=== PATIENT | female | born 1970 | race Caucasian/White ===

== ENCOUNTER 2018-08-19 05:30 | Day surgery (SDC) | payer OTHER ==
--- NOTE | 2018-08-13 16:49 | NUR ---
PATIENT HERE TODAY FOR PREADMISSION APPOINTMENT. SHE IS SCHEDULED TO HAVE A RIGHT TOTAL KNEE REPLACMENT ON 08/19/18. HER JULIO WILL BE HERE TO TRANSPORT HER HOME WHEN DISCHARGED AND SHE HAS HELP TO GET TO PHYSICAL THERAPY AND APPOINTMENTS. SHE HAS ALREADY COMPLETED THE JOINT BOOT CAMP AND WOULD LIKE PHYSICAL THERAPY TO BE SET UP AT THE [facility] PHYSICAL THERAPY. SHE HAS 1 STEP INTO THE HOME AND NO STEPS INSIDE THE HOME. SHE HAS A WALKIN SHOWER WITH HAND HELD SHOWER HEAD. SHE HAS ALSO ALREADY OBTAINED A FRONT WHEELED WALKER AND SHOWER CHAIR. THIS INFORMATION WILL BE SENT TO DR DAUGHERTY AND CASE MANAGEMENT FOR FURTHER FOLLOW UP.
[~2018-08-19] VITALS: Ht 165.1 cm; Wt 130.2 kg
[~2018-08-19 05:30] MED LIST: ANAFRANIL25 MG; BENICAR20 MG PO; DICLOFENAC SODI50 MG PO; FELODIPINE ER10 MG; IRBESARTAN300 MG PO; LEVOTHROID125 MCG; LEVOTHYROXINE200 MCG PO; METOPROLOL SUCC50 MG PO; NORCO 5-325 TA1 EACH PO; OMEPRAZOLE20 MG PO; PREMARIN0.625 MG; PROVENTIL HFA6.7 GM
--- NOTE | 2018-08-19 09:42 | NUR ---
PT IS ALERT, ORIENTED AND SUPPORTED BY HER FAMILY. SHE SEEMS PREPARED, INFORMED AND READY FOR RELIEF. PT HAD FEW QUESTIONS, IS TO BE DC'D TODAY. PT DID REQUEST PRAYER, WILL FOLLOW NEEDED
--- NOTE | 2018-08-19 10:26 | NUR ---
08/19/18 1026 Arabella Miranda 0939 PT ARRIVED IN PACU AWAKE WITH NO C/O'S. JULIAN WOUND VAC IN PLACE AND ON-QUE PUMP ON AND SET AT 8 IN OR. 0945 CRYO CUFF PLACED TO R KNEE. NO C/O'S. 0951 OXYGEN REMOVED. SATS 96% ON RA. 1000 PT WILL OCCASIONALLY HOLD BREATH AND SATS DROP TO 88% ON RA. ENCOURAGED DEEP BREATHING. O2 AT 2L VIA NC PLACED AND SATS INCREASED TO 100%. 1020 PT ABLE TO WIGGLE TOES AT THIS TIME.
--- NOTE | 2018-08-19 10:46 | NUR ---
PT ARRIVE TO DS TREATMENT ROOM FROM PACU AWAKE AND ALERT. PT SITTING IN HIGH FOWLERS POSITION, RESP EVEN AND UNLABORED. PT HAS NC IN PLACE WITH 2L O2. PT DENIES ANY PAIN OR NAUSEA. PT PROVIDED WATER AND PUDDING, TOLERATES SMALL SIPS WELL. CALL LIGHT WITHIN REACH, FAMILY AT BEDSIDE.
--- NOTE | 2018-08-19 12:08 | NUR ---
PU5051: PT CONT TO REST IN BED. PT SATS 94% ON RA. PT CONT TO DENY PAIN IN RIGHT KNEE AND DENIES N/V. BILAT HEEL PROTECTORS PLACED. PT PROVIDED I.S. AND EDUCATED ON HOW TO USE IT. PT DEMONSTRATES USE. 1130: PT CONT TO SAT 94% ON RA WITH EVEN AND UNLABORED RESP. PT ABLE TO MOVE BOTH LEGS AND DENIES ANY TIGLING OR NUMBNESS IN RIGHT LEG. PT RATES PAIN 3/10 AT THIS TIME AND DENIES NAUSEA. PT TOLERATES PUDDING WELL. ICED WATER REFILLED. 1200: PHARMACY NOTIFIED OF MEDS DUE, WILL BRING TO DS WHEN THEY ARE AVAILABLE. DIETARY CALLED AND LUNCH ORDERED FOR PT.
--- NOTE | 2018-08-19 12:39 | NUR ---
PT TOLERATES LUNCH WELL, REQUESTS SODA TO DRINK. PT FAMILY AT BEDSIDE. PT MEDICATED FOR PAIN, SEE EMAR. PT ABLE TO WIGGLE TOES ON RIGHT LEG AND HAS GOOD CMS.
--- NOTE | 2018-08-19 13:24 | NUR ---
PATIENT RINGS HER CALL LIGHT AND ASKS FOR MORE FOOD. YOGURT AND GRANOLA ORDERED FROM DIETARY.
--- NOTE | 2018-08-19 13:53 | NUR ---
TWO RN'S ASSIST PT UP TO BEDSIDE COMMODE. PT TRANSFERS WELL AND IS ABLE VOID WITH NO PROBLEMS. PT BACK IN BED, EATING YOGURT. PT RATES PAIN 1/10 AND DENIES ANY NAUSEA. PT STATES, "CAN PHYSICAL THERAPY COME ANY SOONER, I WOULD LIKE TO GO HOME." THIS RN NOTIFIES PHYSICAL THERAPY OF PT REQUESTS.
--- NOTE | 2018-08-19 15:14 | NUR ---
1415: PHYSICAL THERAPY ARRIVES TO DS TREATMENT ROOM FOR THERAPY. PT TAKEN TO MED SURG FLOOR. 1500: PT BACK FROM PHYSICAL THERAPY. PT ASKS IF SHE CAN GET DRESSED AND DISCHARGE. PT DOES NOT HAVE ORDERS ON CHART AT THIS TIME FOR HOME PAIN MANAGEMENT. PT RESTS IN BED WITH SCD'S IN PLACE AND CRYO CUFF ON RIGHT KNEE. PT SPOUSE AT BEDSIDE. PT PROVIDED SODA PER REQUEST. CALL LIGHT WITHIN REACH.
--- NOTE | 2018-08-19 16:12 | NUR ---
PT CONT TO REST IN BED, WATCHING TV. RESP EVEN AND UNLABORED. PT RATES PAIN IN RIGHT KNEE 02/22. PT DENIES NAUSEA AT THIS TIME AND REQUESTS GRILLED CHEESE WITH CHIPS, DIETARY NOTIFIED. CRYOCUFF REFILLED WITH ICE. CALL LIGHT WITHIN REACH.
--- NOTE | 2018-08-19 16:26 | NUR ---
DINNER ARRIVES TO PT ROOM. PT MEDICATED FOR PAIN, SEE EMAR.
[2018-08-19] MEDS ORDERED: OXYCODONE HCL5 MG PO (17:09)
[2018-08-19] MEDS ORDERED: CELECOXIB200 MG PO (17:09)
[2018-08-19] MEDS ORDERED: GABAPENTIN600 MG PO (17:09)
[2018-08-19] MEDS ORDERED: HEALTHYLAX17 GM PO (17:10)
[2018-08-19] MEDS ORDERED: SENNA LAX8.6 MG PO (17:10)
[2018-08-19] MEDS ORDERED: ASPIRIN EC325 MG PO (17:12)
--- NOTE | 2018-08-19 17:36 | NUR ---
DC CRITERIA MET AT THIS TIME. DR. DAUGHERTY INPUTS DISCHARGE ORDERS. PT ASSISTED IN GETTING DRESSED. DC INSTRUCTIONS GIVEN TO PT, ALL QUESTIONS ANSWERED. PAIN MEDICATION SCRIPT GIVEN TO PT WITH DC INSTRUCTIONS. PT SPOUSE PULLS VEHICLE TO MAIN ENTRANCE OF HOSPITAL. PT DC'S VIA WC FROM DS TREATMENT ROOM TO HOME.
--- NOTE | 2018-08-19 18:09 | OR ---
[facility] [address] [place], [place] [address] Signed DATE OF OPERATION: 08/19/2018 SURGEON: Kiya Mc MD PREOPERATIVE DIAGNOSIS: Degenerative joint disease, right knee. POSTOPERATIVE DIAGNOSIS: Degenerative joint disease, right knee. PROCEDURE PERFORMED: Right total knee arthroplasty with computer navigation. CENTRAL CONTROL ROOM OPERATOR: KATIE Crespo. Karen was present in critical positioning, retraction, and wound closure. ANESTHESIA: Spinal. BLOOD LOSS: 150 mL. TOURNIQUET TIME: Zero. IMPLANTS: Kaleigh Triathlon size #5 femur, size 5 tibia, 11 mm insert, and 32 patella. BRIEF HISTORY: Ana Laura is a 48-year-old female with progressive worsening of osteoarthritis. She had life altering pain, had failed nonoperative treatment including injections, activity modification, anti-inflammatories. Risks and benefits of operative intervention were discussed with her and she elected to proceed. DESCRIPTION OF PROCEDURE: Once consent was obtained, she was taken to the operating room, placed on operating room table. All downside pressure points well padded. The right leg was placed in well-padded proximal thigh tourniquet and prepped and draped in a standard sterile fashion. The incision was made anteriorly and carried through skin and subcutaneous Electronically Signed By: KIYA MC MD 08/19/18 1809 PATIENT NAME: ANA LAURA DAY OPERATIVE REPORT DATE OF : 70 REPORT #: [id number] PHYSICIAN: KIYA MC MD PCP: JEREMIAS ANSARI MD REPORT IS CONFIDENTIAL AND NOT TO BE RELEASED WITHOUT AUTHORIZATION [facility] [address], [place] [address] Signed tissue. Median parapatellar arthrotomy was performed. The infrapatellar fat pad was excised and the MCL was elevated as minimally as possible around the posteromedial corner. The menisci were removed. The knee was flexed and the ACL was transected. The navigation guide was pinned to the distal femur and the femur was registered with the computer. The cutting block was then pinned in neutral alignment and the location of distal cut was made. The distal femur was then sized to a 5 and the 5 AP cutting block was pinned in line with epicondylar axis. The anterior, posterior, and chamfer cuts were made and osteophytes removed. The bone surfaces were pulse lavaged as we went. The attention was then turned to the proximal tibia. The navigation guide was pinned to the proximal tibia and the tibia was registered with the computer. The cutting guide was then pinned in neutral alignment and set with 2 degrees of posterior slope. The cut was made with care taken to protect the patellar tendon and MCL. Bone was excised as were any meniscal remnants. Minimal posterior release was performed due to her slight hyperextension postoperatively. There were no osteophytes posteriorly. The flexion and extension gaps were sized and found to be symmetric at 11. The trials were then positioned. Knee was taken through range of motion and found to be quite stable in good alignment. The patella was cut sized and drilled for a 32 patella. The distal femur was drilled and the proximal tibia was finished using the keel punch. The bone surfaces were pulse lavaged and packed with dry Ray-Luzmaria. The cement was mixed. When it reached proper consistency, it was placed on bone surfaces and implants. Tibia was impacted into position first followed by the polyethylene. The femur was impacted in position first, then the knee was extended nicely loaded. All remaining cement overflow was removed. The patella was clamped into position. Again, any overflow was removed. Cement was allowed to harden. Once it was hardened sufficiently, the knee was flexed and the remaining overflow was removed using osteotomes. Periarticular soft tissues were injected with 100 mL of ropivacaine, Toradol epi mix. The On-Q pump was then placed through a separate subcu portal superiorly, brought into the suprapatellar pouch and placed into the adductor canal under direct visualization. This was done bluntly with a pituitary rongeur. This was then dosed and the knee was run, it was pulse lavaged for a final time. A total of 3 L of antibiotic irrigation was used. The arthrotomy was closed using #2 Stratafix, #0 Stratafix for the subcutaneous tissue, and Dermabond mesh for the skin. The knee was dressed with a vacuum dressing and Shiva wrap. She was awakened and taken to recovery room in satisfactory condition. All sponge, needle, and instrument counts correct. Kiya Mc MD BA/MODL Electronically Signed By: KIYA MC MD 08/19/18 1809 PATIENT NAME: ANA LAURA DAY OPERATIVE REPORT DATE OF : 70 REPORT #: [id number] PHYSICIAN: KIYA MC MD PCP: JEREMIAS ANSARI MD REPORT IS CONFIDENTIAL AND NOT TO BE RELEASED WITHOUT AUTHORIZATION [address] [address] Signed /[id number] Copies: ~ Electronically Signed By: KIYA MC MD 08/19/18 1809 PATIENT NAME: ANA LAURA DAY OPERATIVE REPORT DATE OF : 70 REPORT #: [id number] PHYSICIAN: KIYA MC MD PCP: JEREMIAS ANSARI MD REPORT IS CONFIDENTIAL AND NOT TO BE RELEASED WITHOUT AUTHORIZATION
== END 2018-08-19 17:35 | disposition home or self-care (01) ==
LOC: DSVR 05:30 → DS 05:30 → MS 05:30 → EDSTATUS 11:00 → MS 11:00 → DS 17:35
PROVIDERS: Specialist
PROC: 8E0YXBZ Computer Assisted Procedure of Lower Extremity (ICD-10-PCS; 2018-08-19)
PROC: 0SRC0J9 Replacement of Right Knee Joint with Synthetic Substitute, Cemented, Open Approach (ICD-10-PCS; principal; 2018-08-19 06:45)
DX: M17.11 Unilateral primary osteoarthritis, right knee (principal); J45.909 Unspecified asthma, uncomplicated; K21.9 Gastro-esophageal reflux disease without esophagitis; E66.01 Morbid (severe) obesity due to excess calories; E03.9 Hypothyroidism, unspecified; I10 Essential (primary) hypertension; Z68.42 Body mass index [BMI] 45.0-49.9, adult; Z79.899 Other long term (current) drug therapy
CPT/HCPCS: 01402; 64447; 64450; 76942; 97110; 97161; 97165; C1713; C1776; J0131; J0690; J1100; J1885; J2250; J2704; J2795; J3010; J3475; J7120

== ENCOUNTER 2018-12-31 16:28 | Emergency (ER) | payer OTHER ==
[~2018-12-31] VITALS: Ht 165.1 cm; Wt 130.2 kg
[~2018-12-31 16:28] MED LIST changes: +ASPIRIN EC325 MG PO; +CELECOXIB200 MG PO; +GABAPENTIN600 MG PO; +HEALTHYLAX17 GM PO; +OXYCODONE HCL5 MG PO; +SENNA LAX8.6 MG PO
--- OUTSIDE RECORDS SUMMARY | 2018-12-31 16:30 | XMS ---
PreManage Notification: ANA LAURA DAY Security Vrt Mechanic Events No recent Security Events currently on file CRITERIA MET - [facility] CARE PROVIDERS Onesimo Mc Primary Care Current PHONE: Unknown leticia Case or Iron Launder Operator Current PHONE: Unknown [facility] [place] [facility] Current Orthopedic Surgery \T\ Fracture Clinic PHONE: Unknown John has no Care Guidelines for this patient. E.D. VISIT COUNT (12 MO.) 1 [facility] TOTAL 1 NOTE: Visits indicate total known visits. ED/UCC VISIT TRACKING (12 MO.) 12/31/2018 16:29 [facility] TYPE: Emergency COMPLAINT: - R LEG PAIN,POSS BLOOD CLOT INPATIENT VISIT TRACKING (12 MO.) 08/19/2018 05:[address] [facility] TYPE: Orthopedic COMPLAINT: - RT TOTAL KNEE REPLACEMENT DIAGNOSES: - Pain in right knee - Synovial cyst of popliteal space [Leo], right knee - Unilateral primary osteoarthritis, right knee [email or web address]
[2018-12-31] MEDS ORDERED: CLINDAMYCIN HC150 MG PO (16:48)
[2018-12-31] MEDS ORDERED: HYDROCHLOROTHIA25 MG PO (16:48)
== END 2018-12-31 17:59 | disposition home or self-care (01) ==
LOC: ED 16:28
DX: M25.561 Pain in right knee (principal); I10 Essential (primary) hypertension; Z90.710 Acquired absence of both cervix and uterus; Z88.0 Allergy status to penicillin; Z88.8 Allergy status to other drugs, medicaments and biological substances; Z79.899 Other long term (current) drug therapy
CPT/HCPCS: 93971; 99283-25

== ENCOUNTER 2023-11-29 16:31 | Inpatient (IN) | payer OTHER ==
[~2023-11-29] VITALS: Ht 162.6 cm; Wt 120.9 kg
[~2023-11-29 16:31] MED LIST changes: +BUSPIRONE HCL15 MG PO; +CLINDAMYCIN HC150 MG PO; -FELODIPINE ER10 MG; +FELODIPINE ER10 MG PO; +HYDROCHLOROTHIA25 MG PO; +LEVOTHYROXINE25 MCG PO
[2023-11-29] MEDS ORDERED: ONDANSETRON HCL8 MG PO (16:47)
[2023-11-29 17:01] LABS: BASOPHILS 1.2 % (0-2); EOSINOPHILS 3.1 % (0-6); HEMOGLOBIN 10.1 g/dL (12.0-18.0); LYMPHOCYTES 13.5 % (24-44); MCH 28.2 (27-36); MCHC 33.6 g/dl (30-36); MONOCYTES 8.6 % (0-12); NEUTROPHILS 73.6 % (39-80); PLATELET COUNT 417 K/uL (140-440); RBC 3.57 M/ul (4.3-5.7); RDW 14.1 (10.5-15.0)
[2023-11-29 17:18] LABS: ALBUMIN 3.2 g/dL (3.4-5.0); ALBUMIN/GLOBULIN RATIO 0.71 (1.1-2.4); ANION GAP 15.8 (7-21); BILIRUBIN, TOTAL 0.3 ng/dL (0.2-1.0); BUN/CREATININE RATIO 10.11 (6.0-28.6); CALCIUM 8.8 mg/dL (8.5-10.1); CREATININE, SERUM 3.36 mg/dL (0.55-1.02); POTASSIUM 3.8 mmol/L (3.5-5.1); PROTEIN, TOTAL 7.7 g/dL (6.4-8.2)
[2023-11-29] MEDS ORDERED: SODIUM CHLORIDE 0.9% 2,000 ML IV PRN (17:30)
[2023-11-29 18:22] LABS: BILIRUBIN, URINE NEGATIVE (negative); BLOOD/HGB, URINE TRACE-I (Negative); KETONE, URINE NEGATIVE (Negative); LEUK ESTERASE, URINE NEGATIVE (negative); NITRITE, URINE NEGATIVE (negative); PH, URINE 6.5 (5-7)
[2023-11-29 18:33] LABS: BACTERIA, URINE NONE SEEN /hpf (negative); CASTS, URINE NONE SEEN \\lpf; COLLECTION TYPE, URINE CLEAN CATCH; CRYSTALS, URINE NONE SEEN (0-1+); EPITHELIAL CELLS, URINE TRANSITIONAL 1+ /lpf (0-1+); RED BLOOD CELLS, URINE 0-1 /hpf (0-5); REFLEX CULTURE, URINE No (No)
[2023-11-29] MEDS ORDERED: ACETAMINOPHEN 325 MG TAB PO PRN (19:15)
[2023-11-29] MEDS ORDERED: SODIUM CHLORIDE 0.9% 1,000 ML IV SCH (19:15)
[2023-11-29] MEDS ORDERED: ondansetron HCL 4 MG/2 ML VIAL IV PRN (19:15)
--- NOTE | 2023-11-29 20:10 | NUR ---
[facility], pt UP AND TRANSFERRED FROM ED STRETCHER TO MS BED AFTER VOIDING, STEADY ON FEET. pt IN BED, CALL LIGHT AND PERSONAL BELONGINGS IN REACH. pt ORIENTED TO ROOM AND POC, FRESH WATER AND ICECREAM PROVIDED PER pt REQUEST. WARM BLANKET ASLO PROVIDED. ALLERGY BAND IN PLACE AND ADMISSION COMPLETED. NO FURTHER NEEDS OR CONCERNS VERBALIZED, PRIMARY RN UPDATED AND AWARE.
[2023-11-29 20:16] VITALS: BP 146/67
--- NOTE | 2023-11-29 21:44 | NUR ---
PATIENT UP TO BATHROOM. AMBULATING WELL WITH 1 PA ASSIST. URINE LIGHT YELLOW IN COLOR. LUNGS CTA, BOWEL TONES ACTIVE X 4 QUADRANTS. C/O UPPER ABDOMNIAL PAIN/DISCOMFORT. PATIENT THINKS IT IS DUE TO THE ICE CREAM SHE ATE. DENIES ANY NAUSEA, OR PASSING OF GAS. IVF INFUSING WITH NO ISSUES OR CONCERNS AT THIS TIME. NO FURTHER NEEDS. CALL LIGHT WITHIN REACH.
[2023-11-29 21:56] LABS: CREATININE, RANDOM URINE 21.64 mg/dL (NOT ESTABLISHED)
[2023-11-30] VITALS (8 sets, daily range): BP systolic 131–158; BP diastolic 68–83
--- NOTE | 2023-11-30 00:07 | NUR ---
PATIENT UP TO BATHROOM WITH 1 PA ASSIST. AMBULATING WELL. VOIDING QUANITY SUFFICIENT. TOLLERATED WELL. BACK IN BED. NO FURTHER NEEDS AT THIS TIME CALL LIGHT WITHIN REACH.
--- NOTE | 2023-11-30 02:19 | NUR ---
PATIENT RESTING IN BED. AWAKENS UPPON SOUND. VSS. DENIES ANY PAIN AT THIS TIME. REPORTS NO NAUSEA AT THIS TIME. NO FURTHER NEEDS. CALL LIGHT WITHIN REACH.
--- NOTE | 2023-11-30 02:33 | NUR ---
PATIENT AMBULATED TO BATHROOM. VOIDING QUANITY SUFFICIENT. TOLLERATED AMBULATING WITH NO ISSUES OR CONCERNS 1 PA STAND BY ASSIST. NO FURTHER NEEDS CALL LIGHT WITHIN REACH.
[2023-11-30 05:19] LABS: BASOPHILS 1.1 % (0-2); EOSINOPHILS 3.4 % (0-6); HEMATOCRIT 27.7 % (35.0-50.0); HEMOGLOBIN 9.1 g/dL (12.0-18.0); LYMPHOCYTES 11.5 % (24-44); MCH 27.9 (27-36); MCHC 33.1 g/dl (30-36); MCV 84.4 fl (81-99); MONOCYTES 9.9 % (0-12); NEUTROPHILS 74.1 % (39-80); PLATELET COUNT 356 K/uL (140-440); RBC 3.28 M/ul (4.3-5.7); RDW 14.1 (10.5-15.0)
--- NOTE | 2023-11-30 05:25 | NUR ---
PATIENT UP OUT OF BED. AMBULATED TO BATHROOM WITH NO ISSUES 1 PA ASSIST. IV SITE PATENT. DENIES ANY PAIN OR DISCOMFORT AT THIS TIME. GIVEN FRESH ICE WATER. NO FURTHER NEEDS AT THIS TIME. CALL LIGHT WITHIN REACH.
[2023-11-30 05:32] LABS: ALBUMIN 2.5 g/dL (3.4-5.0); ALBUMIN/GLOBULIN RATIO 0.63 (1.1-2.4); ANION GAP 16.9 (7-21); BILIRUBIN, TOTAL 0.2 ng/dL (0.2-1.0); BUN/CREATININE RATIO 9.3 (6.0-28.6); CALCIUM 8.1 mg/dL (8.5-10.1); CREATININE, SERUM 3.01 mg/dL (0.55-1.02); MAGNESIUM 1.8 mg/dL (1.8-2.4); PHOSPHORUS, INORGANIC 4.3 mg/dL (2.5-4.9); POTASSIUM 3.9 mmol/L (3.5-5.1); PROTEIN, TOTAL 6.5 g/dL (6.4-8.2)
--- NOTE | 2023-11-30 06:00 | NUR ---
PATIENT CALLED. IV ALARMING. PUMP WITH DISTAL OCCLUSION. ARM REPOSITIONED. NO FURTHER ISSUES AT THIS TIME. CALL LIGHT WITHIN REACH.
--- NOTE | 2023-11-30 07:15 | NUR ---
REPORT RECEIVED FROM MADI RN ALL QUESTIONS ANSWERED. PT UP TO RESTROOM AND BACK TO BED, DENIES PAIN OR NEEDS AT THIS TIME. CALL LIGHT IN REACH.
[2023-11-30] MEDS ORDERED: OMEPRAZOLE40 MG PO (08:12)
[2023-11-30] MEDS ORDERED: ESCITALOPRAM OX20 MG PO (08:14)
[2023-11-30] MEDS ORDERED: ADVAIR HFA 115-12 GM INH (08:14)
[2023-11-30] MEDS ORDERED: ALLOPURINOL300 MG PO (08:15)
[2023-11-30] MEDS ORDERED: LACTATED RINGER'S 1,000 ML IV SCH (08:15)
[2023-11-30] MEDS ORDERED: VENTOLIN HFA18 GM INH (08:17)
[2023-11-30] MEDS ORDERED: PANTOPRAZOLE SODIUM 40 MG TABEC PO SCH (09:00)
[2023-11-30] MEDS ORDERED: ZINC50 MG PO (09:13)
[2023-11-30] MEDS ORDERED: VITAMIN C500 M1 PO (09:13)
[2023-11-30] MEDS ORDERED: FISH OIL 1,0001 EAC5 PO (09:13)
[2023-11-30] MEDS ORDERED: MAGOX 400400 MG PO (09:13)
[2023-11-30] MEDS ORDERED: GARLIC100 MG PO (09:14)
[2023-11-30] MEDS ORDERED: VITAMIN B-121000 MCG PO (09:14)
[2023-11-30] MEDS ORDERED: VITAMIN D325 MCG PO (09:14)
--- NOTE | 2023-11-30 09:15 | NUR ---
MED REC COMPLETE
--- NOTE | 2023-11-30 10:04 | NUR ---
PATIENT ALERT AND ORIENTED, SITTING UP IN BED. DEMOGRAPHICS VERIFIED WITH PATIENT. STATES SHE LIVES IN SINGLE LEVEL HOME WITH . NO STAIRS, RECENTLY PUT IN RAMP FOR SPOUSE TO GET INTO HOME. STATES SHE HAS NO DME AND SHE CONTINUES ABLE TO DRIVE. NO FINANCIAL HARDSHIP, CONTINUES ABLE TO PAY UTILITIES, BUY FOOD AND MEDICATION WITHOUT DIFFICULTY. DENIES NEEDS AT THIS TIME. INSTRUCTED IF NEEDS ARISE TO NOTIFY STAFF AND CM WILL CONTINUE TO CHECK IN WITH HER.
--- NOTE | 2023-11-30 11:04 | NUR ---
APRIL PUGH INDICATED PT DESIRED VISIT. LISTENED EMPATHETICALLY PT TALKED OF RECENT HEALTH STRUGGLES, FRUSTRATION. PT EXHIBITED STRONG RELATIONAL RESOURCES, REQUESTED PRAYER. I PROVIDED SUPPORTIVE PRESENCE, ANTICIPATORY GUIDANCE, PRAYER. PT EXPRESSED GRATITUDE, HOPE.
--- NOTE | 2023-11-30 11:10 | NUR ---
MED REC COMPLETE.
[2023-11-30] MEDS ORDERED: PHARMACY RENAL DOSE ADJUSTMENT 1 DOSE MISC PO SCH (12:00)
--- NOTE | 2023-11-30 13:18 | NUR ---
PATIENT WAS ADMITTED AT HIGH RISK FOR MALNUTRITION. SHE STATES SHE HAS LOST 20 LBS IN THE LAST 1 MONTH DUE TO ABDOMINAL PAIN WHEN EATING AND FEELING BLOATED. DR. ANSARI TOLD HER TO DRINK 3 BOOSTS A DAY DUE TO HER POOR APPETITE. SO FAR SHE HAS TOLERATED A FEW BITES OF EGGS AND APPLESAUCE FROM BREAKFAST AND A TURKEY SANDWICH FOR LUNCH. I TOLD HER WE HAVE SHANTHI, STRAWBERRY, VANILLA ENSURES WELL ENSURE CLEAR APPLE AND MIXED MCMULLEN HERE. SHE CAN ASK A NURSE OR PIPE BOWLS PAINT TRIMMER FOR ONE. SHE STATED SHE WASN'T ABLE TO TOLERATE RAW VEGGIES RECENTLY SO SHE IS GOING TO LIMIT HER INTAKE OF THESE FOR A LITTLE WHILE. NOTE THAT SHE DOES HAVE AN ALLERGY TO BLACK WALNUTS. OTHERWISE, HER BMI IS 45.7 AND SHE IS ON A REGULAR DIET. SHE DOES NOT APPEAR MALNOURISHED AT THIS TIME. RD WILL CONTINUE TO MONITOR AND ASSIST WITH NUTRITION IF NEEDED.
[2023-11-30 14:35] LABS: ANION GAP 17.5 (7-21); BUN/CREATININE RATIO 9.18 (6.0-28.6); CREATININE, SERUM 2.94 mg/dL (0.55-1.02); POTASSIUM 3.5 mmol/L (3.5-5.1)
--- NOTE | 2023-11-30 14:35 | NUR ---
UR CLINICAL REVIEW: 2MN AND [facility] INPATIENT 11/29/23 AT 1914 YES, MATCHES ORDER PLAN TO DC TO HOME WITH .
[2023-11-30] MEDS ORDERED: LIDOCAINE & ANTACID 35 ML BTL PO ONE (15:30)
[2023-11-30] MEDS ORDERED: busPIRone HCL 15 MG TAB PO SCH (16:00)
--- NOTE | 2023-11-30 16:20 | NUR ---
FRESH ICE WATER GIVEN BY ECCLESIASTICAL WORKER. CALL LIGHT WITHIN REACH, NO FURTHER NEEDS AT THIS TIME.
[2023-11-30] MEDS ORDERED: METOPROLOL SUCCINATE 50 MG TABCR PO SCH ×2 (18:00→21:00)
[2023-11-30] MEDS ORDERED: ESCITALOPRAM OXALATE 10 MG TAB PO SCH ×2 (18:00→21:00)
--- NOTE | 2023-11-30 19:19 | NUR ---
GOT REPORT FROM DAY SHIFT NURSE.
--- NOTE | 2023-11-30 20:03 | NUR ---
INTO CHECK ON PATIENT. PATIENT CURRENTLY LAYING ON HER LEFT SIDE. PATIENT HAS ABDOMINAL PAIN RATING AT A 2/10. SHE DENIES NEEDING ANY MANY MEDICATION. PATIENT THINKS ITS BECAUSE SHE MIGHT BE NEEDING TO HAVE A BM TODAY IS THE FIRST DAY SHE HAS ATE ANYTHING IN AWHILE. PATIENT GOT A NEW BAG OF IV FLUIDS. FRESH WATER, TV IS ON, BED IN LOW POSTION. CALL LIGHT WITHIN REACH. PATIENT STATES SHE IS TIRED AND READY TO GET SOME SLEEP TONIGHT.
--- NOTE | 2023-11-30 20:57 | NUR ---
VITALS AND I&O'S DONE. PATIENT IS READY FOR BED AND DENIES NEEDING ANYTHING ELSE AT THIS TIME.
--- NOTE | 2023-11-30 22:18 | NUR ---
PATIENT DID NOT HAVE LABS ORDERED IN THE MORNING. PHONE CALL TO AND CBC AND BMP ORDERED.
--- NOTE | 2023-11-30 22:44 | NUR ---
PATIENT AWAKE JUST GETTING BACK INTO BED FROM GOING TO THE BATHROOM. PATIENT GIVEN MORE WATER. URINE DUMPED. DENIES ANY OTHER NEEDS.
--- NOTE | 2023-12-01 00:35 | NUR ---
THIS RN RESUMING CARE OF PATIENT. PATIENT RESTING IN BED WATHCING TV. NO CURRENT NEEDS. CALL LIGHT IN REACH.
--- NOTE | 2023-12-01 02:03 | NUR ---
PATIENT RESTING IN BED ON BACK WITH EYES CLOSED. RESPIRATIONS EVEN AND UNLABORED. CALL LIGHT IN REACH.
--- NOTE | 2023-12-01 03:52 | NUR ---
PATIENT RESTING IN BED WITH EYES CLOSED. RESPIRATIONS EVEN AND UNLABORED. CALL LIGHT IN REACH.
[2023-12-01 05:24] LABS: BASOPHILS 0.9 % (0-2); EOSINOPHILS 3.5 % (0-6); HEMATOCRIT 28.8 % (35.0-50.0); HEMOGLOBIN 9.5 g/dL (12.0-18.0); LYMPHOCYTES 12.3 % (24-44); MCH 27.8 (27-36); MCHC 32.8 g/dl (30-36); MCV 84.8 fl (81-99); MONOCYTES 8.7 % (0-12); NEUTROPHILS 74.6 % (39-80); PLATELET COUNT 363 K/uL (140-440); RDW 14.2 (10.5-15.0)
[2023-12-01 05:34] LABS: ANION GAP 14.7 (7-21); BUN/CREATININE RATIO 8.66 (6.0-28.6); CALCIUM 8.6 mg/dL (8.5-10.1); CREATININE, SERUM 2.77 mg/dL (0.55-1.02); POTASSIUM 3.7 mmol/L (3.5-5.1)
[2023-12-01 05:55] VITALS: BP 164/90
--- NOTE | 2023-12-01 05:55 | NUR ---
PATIENT RESTING IN BED. VS AND I&Os OBTAINED AND RECORDED. SCHEDULED MEDICATION ADMINSITERED. NEW BAG IV FLUID INFUSING PER ORDER. PATIENT HAS NO FURTHER NEEDS. CALL LIGHT IN REACH.
[2023-12-01] MEDS ORDERED: LEVOTHYROXINE SODIUM 175 MCG TAB PO SCH (06:00)
--- NOTE | 2023-12-01 07:42 | NUR ---
ASSUMED CARE OF PATIENT AT 0700, REPORT RECEIVED FROM [facility] APRIL SANDOVAL. PT AWAKE IN BED, WATCHING TV. PROVIDED PT THIS MORNING OPTIONS FOR BREAKFAST OF HER CHOICE, SHE IS HAPPY WITH THE MENU FOR TODAY. DISCUSSED HER APPETITE COMING BACK IN COMPARISON TO THE LAST MONTH DECREASED APPETITE. PT DENIES PAIN/NAUSEA, DENIES FLANK PAIN. IV FLUIDS INFUSING AT THIS TIME. PT INFORMED, I CAN PROVIDE A GOWN AND SHE CAN AMBULATE THE HALLWAYS TODAY TO GET OUT OF HER ROOM IF SHE WOULD LIKE. MD WAS ALREADY IN THIS MORNING PER PT. PT DENIED ANY FURTHER NEEDS AT THIS TIME, CALL LIGHT WITHIN REACH, FRESH ICE WATER AT BEDSIDE ALREADY.
[2023-12-01] MEDS ORDERED: LACTATED RINGER'S 500 ML IV ONE (09:15)
[2023-12-01 09:19] VITALS: BP 160/77
[2023-12-01 09:21] VITALS: BP 160/77
--- NOTE | 2023-12-01 09:25 | NUR ---
PT RESTING IN BED, IV BOLUS STARTED AT THIS TIME. PT DENIES PAIN, TOLERATED ABOUT 25% OF BREAKFAST, WHICH SHE WAS HAPPY WITH, WORKING ON ENSURE AT THIS TIME. BP SLIGHTLY ELEVATED PT STATES SHE MISSED HER MEDS THIS MORNING WHICH COULD BE CAUSING THAT - WILL ADDRESS WITH MD.
[2023-12-01 12:13] LABS: ANION GAP 14.3 (7-21); BUN/CREATININE RATIO 8.67 (6.0-28.6); CALCIUM 8.7 mg/dL (8.5-10.1); CREATININE, SERUM 2.65 mg/dL (0.55-1.02); POTASSIUM 3.3 mmol/L (3.5-5.1)
[2023-12-01 12:30] VITALS: BP 172/84
--- NOTE | 2023-12-01 12:54 | NUR ---
PT WAS GIVEN DISCHARGE INSTRUCTIONS, ATTEMPTED TO CALL DR. ARREOLA TO VERIFY IF HE WANTED HER TO CONTINUE TO HOLD ALLOPURINOL AND UNABLE TO REACH HIM. PT WAS INSTRUCTED EVEN THOUGH DISCHARGE INSTRUCTIONS WERE TO CONTINUE MEDICATION - TO HOLD UNTIL SHE SEES HER PCP AND HAS LABS REDRAWN AT THIS TIME. DR. ARREOLA DID COME AROUND AFTER PATIENT LEFT AND I VERIFIED IF SHE WAS TO HOLD AND SHE IS TO HOLD THE ALLOPURINOL TILL SHE SEES HER PCP.
[2023-12-01 13:39] LABS: URINE OSMOLALITY 160 mOsm/kg (50-800)
== END 2023-12-01 12:43 | disposition home or self-care (01) | DRG 683 ==
LOC: ED 16:31 → MS 19:39
PROVIDERS: Emergency Medicine; Internal Medicine; ADMIT Family Medicine; ATTEND Family Medicine
DX: N17.9 Acute kidney failure, unspecified (principal); Z68.41 Body mass index [BMI] 40.0-44.9, adult; D64.9 Anemia, unspecified; R01.1 Cardiac murmur, unspecified; E03.9 Hypothyroidism, unspecified; I10 Essential (primary) hypertension; J45.909 Unspecified asthma, uncomplicated; F41.9 Anxiety disorder, unspecified; R63.4 Abnormal weight loss; Z90.710 Acquired absence of both cervix and uterus; Z98.890 Other specified postprocedural states; Z88.0 Allergy status to penicillin; Z88.8 Allergy status to other drugs, medicaments and biological substances; Z79.899 Other long term (current) drug therapy; Z79.2 Long term (current) use of antibiotics; Z79.890 Hormone replacement therapy; Z79.51 Long term (current) use of inhaled steroids
CPT/HCPCS: 36415; 80048; 80053; 81001; 82570; 83690; 83735; 83935; 84100; 84156; 84300; 84443; 85025; A9270; J7030; J7121

== ENCOUNTER 2025-03-10 20:36 | Emergency (ER) | payer OTHER ==
[~2025-03-10] VITALS: Ht 162.6 cm; Wt 109.0 kg
[~2025-03-10 20:36] MED LIST changes: +ADVAIR HFA 115-12 GM INH; +ALLOPURINOL300 MG PO; +ESCITALOPRAM OX20 MG PO; +FISH OIL 1,0001 EAC5 PO; +GARLIC100 MG PO; +MAGOX 400400 MG PO; +OMEPRAZOLE40 MG PO; +ONDANSETRON HCL8 MG PO; +VENTOLIN HFA18 GM INH; +VITAMIN B-121000 MCG PO; +VITAMIN C500 M1 PO; +VITAMIN D325 MCG PO; +ZINC50 MG PO
[2025-03-10] MEDS ORDERED: SYNTHROID125 MCG PO (20:45)
[2025-03-10] MEDS ORDERED: LORazepam 2 MG/ML VIAL IV ONE (20:45)
[2025-03-10] MEDS ORDERED: POTASSIUM CHLO10 ME2 (20:46)
[2025-03-10] MEDS ORDERED: LOSARTAN POTASS25 MG PO (20:46)
[2025-03-10] MEDS ORDERED: CARAFATE1 GM (20:47)
[2025-03-10] MEDS ORDERED: FARXIGA10 MG (20:47)
[2025-03-10] MEDS ORDERED: methylPREDNISolone 4 MG HOME.PACK PO ONE (22:15)
[2025-03-10] MEDS ORDERED: HYDROmorphone HCL 2 MG HOME.PACK PO ONE (22:15)
[2025-03-10] MEDS ORDERED: fentaNYL citrate 100 MCG/2 ML VIAL IV ONE (22:15)
[2025-03-10] MEDS ORDERED: COL-RITE100 MG PO (22:16)
[2025-03-10] MEDS ORDERED: DILAUDID2 MG PO (22:16)
[2025-03-10 22:20] VITALS: BP 144/80
== END 2025-03-10 23:07 | disposition home or self-care (01) ==
LOC: ED 20:36
DX: M47.816 Spondylosis without myelopathy or radiculopathy, lumbar region (principal); I12.9 Hypertensive chronic kidney disease with stage 1 through stage 4 chronic kidney disease, or unspecified chronic kidney disease; N18.30 Chronic kidney disease, stage 3 unspecified; J45.909 Unspecified asthma, uncomplicated; Z88.0 Allergy status to penicillin; Z88.8 Allergy status to other drugs, medicaments and biological substances; Z91.018 Allergy to other foods; Z79.890 Hormone replacement therapy; Z79.899 Other long term (current) drug therapy
CPT/HCPCS: 72131; 96374; 96375; 99284-25; J2060; J2405; J3010

== ENCOUNTER 2025-03-12 21:35 | Emergency (ER) | payer OTHER ==
[~2025-03-12] VITALS: Ht 162.6 cm; Wt 109.0 kg
[~2025-03-12 21:35] MED LIST changes: +CARAFATE1 GM; +COL-RITE100 MG PO; +DILAUDID2 MG PO; +FARXIGA10 MG; +LOSARTAN POTASS25 MG PO; +POTASSIUM CHLO10 ME2; +SYNTHROID125 MCG PO
[2025-03-12] MEDS ORDERED: DEXAMETHASONE SOD PHOS 10 MG/ML VIAL IV ONE (22:45)
[2025-03-12] MEDS ORDERED: MORPHINE SULFATE 4 MG/ML VIAL IV ONE (22:45)
[2025-03-12] MEDS ORDERED: FAMOTIDINE 20 MG/ 2 ML VIAL IV ONE (22:45)
[2025-03-12] MEDS ORDERED: CYCLOBENZAPRINE HCL 10 MG TAB PO ONE (23:00)
[2025-03-12 23:22] LABS: BASOPHILS 0.4 % (0.1-1.2); EOSINOPHILS 0.2 % (0.7-5.8); LYMPHOCYTES 8.6 % (19.3-51.7); MCH 28.1 PG (25.6-32.2); MCHC 33.0 g/dL (32.2-35.5); MCV 85.1 fL (79.4-94.8); MONOCYTES 4.0 % (4.7-12.5); NEUTROPHILS 86.3 % (34.0-71.1); RBC 5.05 M/uL (3.93-5.22)
[2025-03-12 23:42] LABS: ALT (SGPT) 13.0 U/L (14-59); AST (SGOT) 9.0 U/L (15-37); GLOMERULAR FILTRATION RATE,EST 54.0 mL/min (>60); PROTEIN, TOTAL 7.9 g/dL (6.4-8.2); UREA NITROGEN 16.0 mg/dL (7-18)
[2025-03-13] MEDS ORDERED: CYCLOBENZAPRINE10 MG PO (00:17)
[2025-03-13] MEDS ORDERED: CYCLOBENZAPRINE HCL 10 MG HOME.PACK PO ONE ×2 (00:21→00:30)
[2025-03-13 00:32] VITALS: BP 182/97
--- NOTE | 2025-03-14 12:58 | EKG ---
[facility] [address] [facility] [place], [place] [address] Signed Sinus bradycardia Confirmed by Alejo Barroso DO ([id number]) on 03/14/2025 12:57:48 PM Electronically Signed By: ALEJO BARROSO DO 03/14/25 1258 PATIENT NAME: ANA LAURA DAY Electrocardiogram DATE OF : 70 PHYSICIAN: ALEJO BARROSO DO REPORT #: [id number] REPORT IS CONFIDENTIAL AND NOT TO BE RELEASED WITHOUT AUTHORIZATION
== END 2025-03-13 00:32 | disposition home or self-care (01) ==
LOC: ED 21:35
PROVIDERS: Internal Medicine
DX: M54.42 Lumbago with sciatica, left side (principal); M54.41 Lumbago with sciatica, right side; I12.9 Hypertensive chronic kidney disease with stage 1 through stage 4 chronic kidney disease, or unspecified chronic kidney disease; N18.30 Chronic kidney disease, stage 3 unspecified; J45.909 Unspecified asthma, uncomplicated; Z88.8 Allergy status to other drugs, medicaments and biological substances; Z88.0 Allergy status to penicillin; Z79.890 Hormone replacement therapy
CPT/HCPCS: 36415; 80053; 84484; 85025; 85379; 93005; 93010; 96374; 96375; 99284-25; J1100; J2270; J2405